=== PATIENT | female | born 1970 | race Caucasian/White ===

== ENCOUNTER 2018-10-23 11:17 | Observation (INO) ==
[2018-10-23] MEDS ORDERED: Ondansetron 4 MG/2 ML VIAL IVP ONE (11:29)
--- NOTE | 2018-10-23 11:36 | Emergency Department Note ---
Disposition Clinical Impression: TIA (transient ischemic attack) Disposition: Admitted As Inpatient Condition: Fair Referrals: NONE,PCP [Primary Care Provider] - Forms: ED Satisfaction Letter Time of Disposition: 15:43 General Adult HPI - General Chief complaint: ED Dizziness Stated complaint: dizziness, congestion Time Seen by Provider: 10/23/18 11:28 Vital Signs Reviewed: Yes - History of Present Illness HPI Narrative: Patient is a 48-year-old female with a history of migraines presenting to the emergency department for 4 day history of nausea and dizziness. Patient states that her symptoms began 4 days ago when she was in [facility]. Patient states that when her symptoms began she also experienced right-sided arm p aresthesias, right-sided facial droop, slurring of her speech, and water dripping off the side of her mouth when she tried to drink. She said that the symptoms lasted for a few minutes and self resolved. She states that she visited emergency department department 30 minutes after the onset of her symptoms. She states that they were concerned for stroke but workup was negative, states that they performed a CT scan done on an MRI. She states that since then she has had ongoing dizziness, nausea, and gait imbalance. She states that it feels as though the room is spinning around her. She states that this occurs daily and appears to be getting worse since. She has a history of migraines managed by Topamax, but states that she has not had any headaches recently. She denies any current unilateral changes in sensation or weakness. Patient does admit to recent illness, saying that she has been battling sinus infections since early September. Denies any other neurological complaints, no fevers but does admit to subjective chills. Patient denies any history of hypertension, hyperlipidemia, or diabetes. Pain Scale: 0 - Related Data Allergies Allergy/AdvReac Type Severity Reaction Status Date / Time Penicillins Allergy See Verified 10/23/18 11:22 Comments Constitutional: Reports: chills. Denies: fever Eyes: Denies: vision change ENT ED: Denies: hearing loss Cardiovascular: Reports: chest pain Respiratory: Denies: dyspnea Gastrointestinal: Denies: abdominal pain, nausea, vomiting Genitourinary: Denies: dysuria Musculoskeletal: Denies: back pain Integumentary: Denies: rash Neurological: Denies: headache Physical Exam - General Limitations: no limitations General appearance: other (Patient is alert and oriented, but slow to answer questions.) - Head Head exam: atraumatic, normocephalic - Eye Eye exam: Present: normal appearance, PERRL, EOMI - ENT ENT exam: normal exam - Neck Neck exam: Present: normal inspection, trachea midline - Chest Chest inspection: Present: normal inspection, symmetric chest wall rise - Respiratory Respiratory exam: Present: normal lung sounds bilaterally. Absent: wheezes - Cardiovascular Cardiovascular exam: Present: regular rate, normal rhythm, systolic murmur - Abdominal Exam Abdominal exam: Present: soft, Non-Tender. Absent: guarding, rigidity - Extremities Exam Extremities exam: Present: normal inspection - Neurological Exam Neurological exam: Present: alert, oriented X3 - Expanded Neurological Exam Patient oriented to: Present: person, place, time Speech: Present: fluid speech Cranial nerves: EOM function (II, III, IV, ): Normal, facial sensation (V): Normal, facial palsy (VII): Normal, spinal accessory function (XI): Normal, tongue deviation (XII): Normal Cerebellar function: finger to nose: Normal Motor strength - LUE: 5/5 Motor strength - RUE: 5/5 Motor strength - LLE: 5/5 Motor strength - RLE: 5/5 Sensory exam upper extremity: light touch: Normal Sensory exam lower extremity: light touch: Normal DTR: patellar (L): 2+, patellar (R): 2+ Coma Scale Eye Opening: Spontaneous Coma Scale Motor Response: Obeys Commands Coma Scale Verbal Response: Oriented Coma Scale Total: 15 - Psychiatric Psychiatric exam: Present: normal affect, normal mood - Skin Skin exam: Present: warm, dry, intact Course Course Narrative: 12:12 48 row female with four-day history of nausea and dizziness, stating as though the room is spinning around her. Symptoms occur daily and are progressively worsening. Symptoms initially presented with right-sided arm paresthesias, right-sided facial droop, and slurring of her words. Patient was worked up for strokelike symptoms at an emergency department in [place]. Workup was negative patient discharged home with diagnoses of vertigo. Will perform continued workup with labs including CC, CMP, troponin, urinalysis. Also obtain a chest x-ray and we will obtain a CT angiogram of the head and neck. Patient at this time is completely neurologically intact. 12:38 CBC, BMP, troponin, chest x-ray, and EKG all within normal limits. CTA head and neck pending. 14:40 CTA head and neck unremarkable. patient to be admitted to the hospital for neurological symptoms and TIA workup. Vital Signs Temperature 97.4 F L 10/23/18 11:21 Pulse Rate 71 10/23/18 11:21 Respiratory Rate 18 10/23/18 11:21 Blood Pressure 150/101 10/23/18 11:21 O2 Sat by Pulse Oximetry 95 10/23/18 11:21 Temperature 97.4 F L 10/23/18 11:46 Pulse Rate 66 10/23/18 14:27 Respiratory Rate 16 10/23/18 14:27 Blood Pressure 116/75 10/23/18 14:27 O2 Sat by Pulse Oximetry 99 10/23/18 14:27 Oxygen Delivery Oxygen Delivery Room Air Medical Decision Making - MDM Narrative Medical decision making narrative: 48-year-old female history of migraines presenting to the emergency department for a history of nausea and dizziness. Patient states her symptoms began 4 days ago were also associated with right-sided arm paresthesias, right-sided facial droop, slurred speech, and she drank water she noted water dripping off the side of her mouth. She was worked up at an emergency [facility] for possible stroke in [place] but CT scan was normal. She did not receive an MRI was not admitted at that time. Since that event patient states that she is continuously dizzy and nauseous. While in the emergency department patient remained hemodynamically stable, CT a head and neck were obtained and were normal. Lab work was grossly normal. Concern for TIA, patient be admitted to the hospital for further TIA workup. Head CTA 10/23/18 11:57 IMPRESSION: 1. No acute intracranial abnormality. 2. Acute on chronic right maxillary sinusitis. 3. Unremarkable CTA of the neck. 4. Unremarkable CTA of the head. D/ / 10/23/2018 14:11:40 Vickie Perez MD / patricio Interpreting Provider: Vickie Perez MD Neck CTA 10/23/18 11:58 IMPRESSION: 1. No acute intracranial abnormality. 2. Acute on chronic right maxillary sinusitis. 3. Unremarkable CTA of the neck. 4. Unremarkable CTA of the head. D/ / 10/23/2018 14:11:40 Vickie Perez MD / patricio Interpreting Provider: Vickie Perez MD Chest X-Ray 10/23/18 12:14 IMPRESSION: No evidence of acute cardiopulmonary disease. D/ / Manfred Donaldson MD / Manfred Donaldson MD Interpreting Provider: Manfred Donaldson MD - Lab Data Lab results reviewed: Yes I reviewed the patient's lab results. Result diagrams: 10/23/18 11:44 10/23/18 11:44 Lab Results 10/23/18 10/23/18 10/23/18 Range/Units 11:44 11:44 12:09 WBC 5.2 (4.3-11.1) K/mcL RBC 4.59 (3.82-4.97) M/mcL Hgb 13.4 (11.5-15.4) g/dL Hct 40.0 (35.3-44.9) % MCV 87.1 (83.0-100.0) fL MCH 29.2 (28.0-33.3) pg MCHC 33.5 (31.6-35.5) g/dL RDW 13.5 (11.5-14.5) % Plt Count 202 (140-400) K/mcL MPV 10.0 (9.4-12.4) fL Immature Gran % 0.6 (0-4) % Seg Neutrophils % 51.2 % Lymphocytes % 30.3 % Monocytes % 7.3 % Eosinophils % 9.8 % Basophils % 0.8 % Neutrophils # 2.7 (1.6-8.9) K/mcL Lymphocytes # 1.6 (0.6-4.6) K/mcL Monocytes # 0.4 (0.0-1.3) K/mcL Eosinophils # 0.5 (0.0-0.6) K/mcL Basophils # 0.0 (0.0-0.2) K/mcL Sodium 139 (136-145) mEq/L Potassium 3.9 (3.5-5.1) mEq/L Chloride 107 (98-107) mEq/L Carbon Dioxide 24 (23-29) mEq/L BUN 13 (6-20) mg/dL Creatinine 0.79 (0.60-1.20) mg/dL Est GFR ( Amer) > 60 (> 60) Est GFR (Non-Af Amer) > 60 (> 60) BUN/Creatinine Ratio 16 (6-26) Glucose 134 H (70-105) mg/dL POC Glucose 117 H (70-99) mg/dL Calculated Osmolality 290 (280-300) Calcium 8.8 (8.6-10.3) mg/dL Total Bilirubin 0.6 (0.3-1.0) mg/dL AST 16 (13-39) Units/L ALT 19 (7-52) Units/L Alkaline Phosphatase 56 (34-104) Units/L Troponin I < 0.03 (< 0.04) ng/mL Serum Total Protein 6.8 (6.4-8.9) g/dL Albumin 4.1 (3.5-5.7) g/dL Globulin 2.7 (2.4-3.5) g/dL Albumin/Globulin Ratio 1.5 (1.1-2.2) Urine Color (Yellow) Urine Clarity (Clear) Urine pH (5.0-8.0) pH Units Ur Specific [place] (1.010-1.025) Urine Protein (Neg-Trace) mg/dL Urine Glucose (UA) (Normal) mg/dL Urine Ketones (Negative) mg/dL Urine Blood (Negative) Urine Nitrite (Negative) Urine Bilirubin (Negative) Urine Urobilinogen (Normal) mg/dL Ur Leukocyte Esterase (Negative) Ur Culture Indicated? (NO) 10/23/18 Range/Units 13:21 WBC (4.3-11.1) K/mcL RBC (3.82-4.97) M/mcL Hgb (11.5-15.4) g/dL Hct (35.3-44.9) % MCV (83.0-100.0) fL MCH (28.0-33.3) pg MCHC (31.6-35.5) g/dL RDW (11.5-14.5) % Plt Count (140-400) K/mcL MPV (9.4-12.4) fL Immature Gran % (0-4) % Seg Neutrophils % % Lymphocytes % % Monocytes % % Eosinophils % % Basophils % % Neutrophils # (1.6-8.9) K/mcL Lymphocytes # (0.6-4.6) K/mcL Monocytes # (0.0-1.3) K/mcL Eosinophils # (0.0-0.6) K/mcL Basophils # (0.0-0.2) K/mcL Sodium (136-145) mEq/L Potassium (3.5-5.1) mEq/L Chloride (98-107) mEq/L Carbon Dioxide (23-29) mEq/L BUN (6-20) mg/dL Creatinine (0.60-1.20) mg/dL Est GFR ( Amer) (> 60) Est GFR (Non-Af Amer) (> 60) BUN/Creatinine Ratio (6-26) Glucose (70-105) mg/dL POC Glucose (70-99) mg/dL Calculated Osmolality (280-300) Calcium (8.6-10.3) mg/dL Total Bilirubin (0.3-1.0) mg/dL AST (13-39) Units/L ALT (7-52) Units/L Alkaline Phosphatase (34-104) Units/L Troponin I (< 0.04) ng/mL Serum Total Protein (6.4-8.9) g/dL Albumin (3.5-5.7) g/dL Globulin (2.4-3.5) g/dL Albumin/Globulin Ratio (1.1-2.2) Urine Color Yellow (Yellow) Urine Clarity Clear (Clear) Urine pH 7.5 (5.0-8.0) pH Units Ur Specific [place] 1.016 (1.010-1.025) Urine Protein Negative (Neg-Trace) mg/dL Urine Glucose (UA) Normal (Normal) mg/dL Urine Ketones Negative (Negative) mg/dL Urine Blood Negative (Negative) Urine Nitrite Negative (Negative) Urine Bilirubin Negative (Negative) Urine Urobilinogen 2.0 H (Normal) mg/dL Ur Leukocyte Esterase Negative (Negative) Ur Culture Indicated? NO (NO) - Radiology Data Radiology results reviewed: Yes I reviewed the patient's radiology results. - EKG Data EKG #1 EKG attestation: Yes I reviewed and interpreted this EKG. EKG results narrative: EKG shows sinus rhythm with a heart rate of 73. Left axis deviation with late R-wave progression present. Normal CT interval, normal QT interval. T-wave inversions in lead V2 and V3. No old EKG to compare. No obvious ST elevations or depressions.
[2018-10-23 11:56] LABS: Basophils % 0.8 %; Eosinophils # 0.5 K/mcL (0.0-0.6); Eosinophils % 9.8 %; Hemoglobin 13.4 g/dL (11.5-15.4); Immature Granulocytes % 0.6 % (0-4); Lymphocytes # 1.6 K/mcL (0.6-4.6); Lymphocytes % 30.3 %; Mean Corpuscular HGB Conc 33.5 g/dL (31.6-35.5); Mean Corpuscular Hemoglobin 29.2 pg (28.0-33.3); Mean Corpuscular Volume 87.1 fL (83.0-100.0); Monocytes # 0.4 K/mcL (0.0-1.3); Monocytes % 7.3 %; Neutrophils # 2.7 K/mcL (1.6-8.9); Platelet Count 202 K/mcL (140-400); Red Blood Count 4.59 M/mcL (3.82-4.97); Red Cell Distribution Width 13.5 % (11.5-14.5); Segmented Neutrophils % 51.2 %
[2018-10-23] MEDS ORDERED: Isovue-370 500 ML INFUS..BTL IV ONE (11:57)
[2018-10-23 12:18] LABS: Alanine Aminotransferase 19 Units/L (7-52); Albumin 4.1 g/dL (3.5-5.7); Albumin/Globulin Ratio 1.5 (1.1-2.2); Alkaline Phosphatase 56 Units/L (34-104); Aspartate Amino Transferase 16 Units/L (13-39); BUN/Creatinine Ratio 16 (6-26); Bilirubin,Total 0.6 mg/dL (0.3-1.0); Blood Urea Nitrogen 13 mg/dL (6-20); Calcium 8.8 mg/dL (8.6-10.3); Carbon Dioxide 24 mEq/L (23-29); Chloride 107 mEq/L (98-107); Globulin 2.7 g/dL (2.4-3.5); Glucose 134 mg/dL (70-105); Osmolality,Calculated 290 (280-300); Potassium 3.9 mEq/L (3.5-5.1); Sodium 139 mEq/L (136-145); Total Protein 6.8 g/dL (6.4-8.9); Troponin I < 0.03 ng/mL (< 0.04); eGFR For Non-African Americans > 60 (> 60)
[2018-10-23 13:35] LABS: Bilirubin,Urine Negative (Negative); Blood,Urine Negative (Negative); Clarity,Urine Clear (Clear); Color,Urine Yellow (Yellow); Glucose,Urine (UA) Normal (Normal); Ketones,Urine Negative (Negative); Leukocyte Esterase,Urine Negative (Negative); Nitrite,Urine Negative (Negative); PH,Urine 7.5 pH Units (5.0-8.0); Protein,Urine Negative (Neg-Trace); Specific Gravity,Urine 1.016 (1.010-1.025)
[2018-10-23] MEDS ORDERED: Aspirin 325 MG TABLET PO ONE (14:21)
--- NOTE | 2018-10-23 14:28 | Emergency Department Note ---
Disposition Clinical Impression: TIA (transient ischemic attack) Disposition: Admitted As Inpatient Condition: Good Referrals: NONE,PCP [Primary Care Provider] - Forms: ED Satisfaction Letter General Adult HPI - General Chief complaint: ED Dizziness Stated complaint: dizziness, congestion Time Seen by Provider: 10/23/18 11:28 Source: patient Limitations: no limitations - History of Present Illness Pain Scale: 0 - Related Data Allergies Allergy/AdvReac Type Severity Reaction Status Date / Time Penicillins Allergy See Verified 10/23/18 11:22 Comments Constitutional: Reports: chills. Denies: fever Eyes: Denies: vision change ENT ED: Denies: hearing loss Cardiovascular: Reports: chest pain Respiratory: Denies: dyspnea Gastrointestinal: Denies: abdominal pain, nausea, vomiting Genitourinary: Denies: dysuria Musculoskeletal: Denies: back pain Integumentary: Denies: rash Neurological: Denies: headache Past Medical History - Past Medical History Medical history: Reports: migraine Psychiatric history: Reports: no psych history - Social History Smoking Status: Never smoker Alcohol use: Reports: none Drug use: Reports: none Physical Exam - General Limitations: no limitations General appearance: other (Patient is alert and oriented, but slow to answer questions.) Course - Consultations Consultation #1: discusseed case with Dr. Guzmán and he accpts patinet ot his service Time: 14:40 Vital Signs Temperature 97.4 F L 10/23/18 11:21 Pulse Rate 71 10/23/18 11:21 Respiratory Rate 18 10/23/18 11:21 Blood Pressure 150/101 10/23/18 11:21 O2 Sat by Pulse Oximetry 95 10/23/18 11:21 Temperature 97.4 F L 10/23/18 11:46 Pulse Rate 66 10/23/18 14:27 Respiratory Rate 16 10/23/18 14:27 Blood Pressure 116/75 10/23/18 14:27 O2 Sat by Pulse Oximetry 99 10/23/18 14:27 Oxygen Delivery Oxygen Delivery Room Air Medical Decision Making - Lab Data Result diagrams: 10/23/18 11:44 10/23/18 11:44 Lab Results 10/23/18 10/23/18 10/23/18 Range/Units 11:44 11:44 12:09 WBC 5.2 (4.3-11.1) K/mcL RBC 4.59 (3.82-4.97) M/mcL Hgb 13.4 (11.5-15.4) g/dL Hct 40.0 (35.3-44.9) % MCV 87.1 (83.0-100.0) fL MCH 29.2 (28.0-33.3) pg MCHC 33.5 (31.6-35.5) g/dL RDW 13.5 (11.5-14.5) % Plt Count 202 (140-400) K/mcL MPV 10.0 (9.4-12.4) fL Immature Gran % 0.6 (0-4) % Seg Neutrophils % 51.2 % Lymphocytes % 30.3 % Monocytes % 7.3 % Eosinophils % 9.8 % Basophils % 0.8 % Neutrophils # 2.7 (1.6-8.9) K/mcL Lymphocytes # 1.6 (0.6-4.6) K/mcL Monocytes # 0.4 (0.0-1.3) K/mcL Eosinophils # 0.5 (0.0-0.6) K/mcL Basophils # 0.0 (0.0-0.2) K/mcL Sodium 139 (136-145) mEq/L Potassium 3.9 (3.5-5.1) mEq/L Chloride 107 (98-107) mEq/L Carbon Dioxide 24 (23-29) mEq/L BUN 13 (6-20) mg/dL Creatinine 0.79 (0.60-1.20) mg/dL Est GFR ( Amer) > 60 (> 60) Est GFR (Non-Af Amer) > 60 (> 60) BUN/Creatinine Ratio 16 (6-26) Glucose 134 H (70-105) mg/dL POC Glucose 117 H (70-99) mg/dL Calculated Osmolality 290 (280-300) Calcium 8.8 (8.6-10.3) mg/dL Total Bilirubin 0.6 (0.3-1.0) mg/dL AST 16 (13-39) Units/L ALT 19 (7-52) Units/L Alkaline Phosphatase 56 (34-104) Units/L Troponin I < 0.03 (< 0.04) ng/mL Serum Total Protein 6.8 (6.4-8.9) g/dL Albumin 4.1 (3.5-5.7) g/dL Globulin 2.7 (2.4-3.5) g/dL Albumin/Globulin Ratio 1.5 (1.1-2.2) Urine Color (Yellow) Urine Clarity (Clear) Urine pH (5.0-8.0) pH Units Ur Specific [place] (1.010-1.025) Urine Protein (Neg-Trace) mg/dL Urine Glucose (UA) (Normal) mg/dL Urine Ketones (Negative) mg/dL Urine Blood (Negative) Urine Nitrite (Negative) Urine Bilirubin (Negative) Urine Urobilinogen (Normal) mg/dL Ur Leukocyte Esterase (Negative) Ur Culture Indicated? (NO) 10/23/18 Range/Units 13:21 WBC (4.3-11.1) K/mcL RBC (3.82-4.97) M/mcL Hgb (11.5-15.4) g/dL Hct (35.3-44.9) % MCV (83.0-100.0) fL MCH (28.0-33.3) pg MCHC (31.6-35.5) g/dL RDW (11.5-14.5) % Plt Count (140-400) K/mcL MPV (9.4-12.4) fL Immature Gran % (0-4) % Seg Neutrophils % % Lymphocytes % % Monocytes % % Eosinophils % % Basophils % % Neutrophils # (1.6-8.9) K/mcL Lymphocytes # (0.6-4.6) K/mcL Monocytes # (0.0-1.3) K/mcL Eosinophils # (0.0-0.6) K/mcL Basophils # (0.0-0.2) K/mcL Sodium (136-145) mEq/L Potassium (3.5-5.1) mEq/L Chloride (98-107) mEq/L Carbon Dioxide (23-29) mEq/L BUN (6-20) mg/dL Creatinine (0.60-1.20) mg/dL Est GFR ( Amer) (> 60) Est GFR (Non-Af Amer) (> 60) BUN/Creatinine Ratio (6-26) Glucose (70-105) mg/dL POC Glucose (70-99) mg/dL Calculated Osmolality (280-300) Calcium (8.6-10.3) mg/dL Total Bilirubin (0.3-1.0) mg/dL AST (13-39) Units/L ALT (7-52) Units/L Alkaline Phosphatase (34-104) Units/L Troponin I (< 0.04) ng/mL Serum Total Protein (6.4-8.9) g/dL Albumin (3.5-5.7) g/dL Globulin (2.4-3.5) g/dL Albumin/Globulin Ratio (1.1-2.2) Urine Color Yellow (Yellow) Urine Clarity Clear (Clear) Urine pH 7.5 (5.0-8.0) pH Units Ur Specific [place] 1.016 (1.010-1.025) Urine Protein Negative (Neg-Trace) mg/dL Urine Glucose (UA) Normal (Normal) mg/dL Urine Ketones Negative (Negative) mg/dL Urine Blood Negative (Negative) Urine Nitrite Negative (Negative) Urine Bilirubin Negative (Negative) Urine Urobilinogen 2.0 H (Normal) mg/dL Ur Leukocyte Esterase Negative (Negative) Ur Culture Indicated? NO (NO) Attestation Statement - Attestation Attestation: I examined this patient and my medical decision-making was reviewed with the Resident Physician. I agree with the documented findings, disposition and treatment plan as described except to the extent set forth below. 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 She states [facility] and was told she has veritgo. CTA head and neck are otherwise neg ative. I will offer kaylene admission to day for TIA rule out CVA workup. After discussion with kaylene she is willing to be admittd to the hosital for TIA workup.
[2018-10-23] MEDS ORDERED: Naloxone 0.4 MG/ML INJ IVP PRN (15:35)
[2018-10-23 18:14] LABS: Estimated Average Glucose 114 mg/dl; Hemoglobin A1C 5.6 %
--- NOTE | 2018-10-23 20:34 | Internal Med History&Physical ---
Date of Encounter: 10/23/18 Time of Encounter: 17:00 Internal Medicine - H&P: HPI Chief complaint: Vertigo Admitted From: Home Plans for Post Hospital Care: Hospice - Home History of present illness: The patient is a 48-year-old woman. She has underlying migraine headaches. She takes phentermine for treatment of obesity. It was 3 days ago, when she visited [place] for her work-related training. She suddenly developed a feeling of being flushed; with some sweating and tingling in the right arm. It was associated with a feeling of surroundings moving around her. It was also associated with some difficulty in balancing her gait. 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 Then, she was evaluated in an emergency department. They did not find any particular abnormalities (this is what she told me). They gave her meclizine. After a short stay, she left the emergency room basically without any symptoms. She was doing fine for the next 2 days. She started having vertigo (as described above) again, today morning. This time giving her 12.5 mg of meclizine did not help. I saw her shortly after the admission to the hospital floor. She continues to have mild vertigo. Not associated with nausea or vomiting. Not associated with any headache. She was standing for me for a short period of time. Not having any assistance. She tells me, that she has had some aching, in her left ear for about 1 day. She has been fighting "sinus infection side" for the last few weeks. It is a feeling of stuffy nose with some pressure in the area of maxillary sinuses. She has not had any migraine headaches recently. She was started on Topamax about 2 months ago; did not change her low-dose recently. She took the last tablet of phentermine on (3 days ago). PAST MEDICAL HX: Migraine headaches. She has been taking phentermine for treatment of obesity. PAST FAMILY HX: See below.. PAST SOCIAL HX: See below.. REVIEW OF SYSTEMS: All 14 organ systems were reviewed by me with the patient. Positive and pertinent negative findings are listed above. The rest of organ systems is negative. PHYSICAL EXAM: Skin: Free of rash and discoloration. Eyes: Sclera is white. There is no discharge from eyes. ENMT: Oral/pharyngeal mucosa is normal in appearance. There is no discharge from nose or ears. Respiratory: Normal breath sounds with no crackles and wheezes bilaterally. CV: Heart is regular with no gallop or murmur. GI: Abdomen is flat and soft with no palpable mass or visceromegaly. : There is no tenderness in patient's flanks bilaterally. Neuro exam: He has good strength in upper and lower extremities. He has normal eye movements. Psychiatric: He has normal affect. His thought process is appropriate to the situation. ADDITIONAL DATA: The patient had a CTA of head and CTA of the neck done in our emergency room. She does have an acute on chronic right maxillary sinusitis. Otherwise, we did not find any other significant findings. Chest x-ray shows normal findings. CBC is normal. BMP shows a random glucose of 117; the rest of the panel is normal. UA shows normal findings. A/P: Vertigo. It could be presentation of acute labyrinthitis. I will keep her on meclizine at 25 mg by mouth 3 times a day. I am going to reevaluate her t omorrow morning. Then, I will decide about possible MRI of brain and/or neurology consult. Migraine headaches. She has not had any for at least several days. Possible side effects from Topamax and/or phentermine. I will keep this medication is on hold for the next couple days. Obesity with a BMI of 39.4. It will be treated with diet and exercise. Past Med Surg Social Fam HX - Past Medical History Medical history: fibromyalgia, migraine Psychiatric history: no psych history - Past Surgical History Additional surgical history: hysterectomy - Social History Smoking Status: Never smoker Smokeless Tobacco Status: No Alcohol use: none Drug use: none - Family History Father Living Status: Age at : 65 Cause of : [place] Hx Family Cardiac Disorders: Yes Hx Family Respiratory Disorders: No Hx Family Cancer: No Hx Family GI Disorders: No Hx Family Genitourinary Disorders: No Hx Family Endocrine Disorder: No Hx Family Musculoskeletal Disorders: No Hx Family Neuromuscular Disorders: No Hx Family Neurologic Disorders: No Hx Family HEENT Disorders: No Hx Family Autoimmune Disorders: No Hx Family Reproductive Disorders: No Hx Family Psychosocial Disorders: No Hx Family Medical Disorders: No Internal Medicine - H&P: Meds Ergocalciferol (VITAMIN D2) [Vitamin D2] 50,000 unit PO TH 10/23/18 [History] Ketorolac [Toradol] 10 mg PO DAILY PRN 10/23/18 [History] Phentermine HCl [Adipex-P] 37.5 mg PO DAILY 10/23/18 [History] Topiramate [Topamax] 25 mg PO DAILY 10/23/18 [History] Allergy/AdvReac Type Severity Reaction Status Date / Time Penicillins Allergy See Verified 10/23/18 11:22 Comments - Constitutional Vitals: Temp Pulse Resp BP Pulse Ox 97.5 F L 68 18 125/88 99 10/23/18 16:39 10/23/18 16:39 10/23/18 16:39 10/23/18 16:39 10/23/18 16:39 General appearance: Present: A&O X 3, answers questions appropriately Exam: xx Internal Med - H&P Results - Labs CBC & Chem 7: 10/23/18 11:44 10/23/18 11:44 Labs: Short CBC 10/23/18 Range/Units 11:44 WBC 5.2 (4.3-11.1) K/mcL Hgb 13.4 (11.5-15.4) g/dL Hct 40.0 (35.3-44.9) % Plt Count 202 (140-400) K/mcL Neutrophils # 2.7 (1.6-8.9) K/mcL BMP 10/23/18 11:44 Sodium 139 Potassium 3.9 Chloride 107 Carbon Dioxide 24 BUN 13 Creatinine 0.79 Glucose 134 H Calcium 8.8 Cardiac Enzymes 10/23/18 Range/Units 11:44 Troponin I < 0.03 (< 0.04) ng/mL Liver Function 10/23/18 Range/Units 11:44 Total Bilirubin 0.6 (0.3-1.0) mg/dL AST 16 (13-39) Units/L ALT 19 (7-52) Units/L Alkaline Phosphatase 56 (34-104) Units/L Albumin 4.1 (3.5-5.7) g/dL Urine 10/23/18 Range/Units 13:21 Urine Color Yellow (Yellow) Urine Clarity Clear (Clear) Urine pH 7.5 (5.0-8.0) pH Units Ur Specific [place] 1.016 (1.010-1.025) Urine Protein Negative (Neg-Trace) mg/dL Urine Glucose (UA) Normal (Normal) mg/dL - Impressions ITS Impressions Head CTA 10/23/18 11:57 IMPRESSION: 1. No acute intracranial abnormality. 2. Acute on chronic right maxillary sinusitis. 3. Unremarkable CTA of the neck. 4. Unremarkable CTA of the head. D/ / 10/23/2018 14:11:40 Vickie Perez MD / patricio Interpreting Provider: Vickie Perez MD Neck CTA 10/23/18 11:58 IMPRESSION: 1. No acute intracranial abnormality. 2. Acute on chronic right maxillary sinusitis. 3. Unremarkable CTA of the neck. 4. Unremarkable CTA of the head. D/ / 10/23/2018 14:11:40 Vickie Perez MD / patricio Interpreting Provider: Vickie Perez MD Chest X-Ray 10/23/18 12:14 IMPRESSION: No evidence of acute cardiopulmonary disease. D/ / Manfred Donaldson MD / Manfred Donaldson MD Interpreting Provider: Manfred Donaldson MD - Assessment and plan (1) Vertigo Current Visit: Yes Status: Acute (2) Migraine headache Current Visit: Yes Status: Acute Qualifiers: Migraine type: unspecified Intractability: not intractable Qualified Code(s): G43.909 - Migraine, unspecified, not intractable, without status migrainosus (3) Medication side effect Current Visit: Yes Status: Acute (4) Obesity (BMI 35.0-39.9 without comorbidity) Current Visit: Yes Status: Acute - Time Spent With Patient Total time spent is greater than 50% in coordination of care (as documented) at patient's floor/unit and/or counseling patient: 25 - 35 minutes - VTE Reasons for not Prescribing Prophylaxis: Treatment not Indicated - Low risk for VTE Deep Vein Thrombosis/Pulmonary Embolism Present on Admission: No
--- NOTE | 2018-10-24 10:28 | Neurology - Consult Note ---
<Alex Davidson - Last Filed: 10/24/18 12:41> Date of Encounter: 10/24/18 Time of Encounter: 10:28 Assessment and Plan (1) Vertigo Current Visit: Yes Status: Acute Patient with a history of migraines who presented with recurrent vertigo upon a wakening. CT brain at that time was reportedly negative for acute intracranial abnormality 4 days ago at an outside facility. CTA head revealed acute on chronic right maxillary sinusitis with no acute intracranial abnormality. CTA neck was unremarkable. Patient reports left ear ache for the past 1 day which she attributed to maxillary sinusitis for the past few weeks. Symptoms have somewhat improved with Meclizine since arrival. Continue Meclizine. MRI brain pending. (2) Migraine headache Current Visit: Yes Status: Acute Patient started Topamax 2 months ago for migraines. MRI brain pending Qualifiers: Migraine type: unspecified Status migrainosus presence: without status migrainosus Intractability: not intractable Qualified Code(s): G43.909 - Migraine, unspecified, not intractable, without status migrainosus (3) Obesity (BMI 35.0-39.9 without comorbidity) Current Visit: Yes Status: Chronic Phentermine held. Last Phentermine use was 4 days ago. 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 Patient reports onset of symptoms while she was unhooking her tractor trailer in [place] 4 days ago. She states that it felt as though everything was spinning around her like she was drunk. She had associated slight occipital headache, unsteady gait, diaphoresis, tingling in her right arm, and flushing sensation. CT brain at that time was reportedly negative for acute intracranial abnormality. Symptoms resolved with Meclizine in the ED before she flew back home. She returned to [place] 2 days ago and reports recurrent symptoms yesterday morning upon awakening. She reports some difficulty swallowing. Patient denies associated headache, nausea, vomiting, or recent trauma. Of note, patient reports left ear ache for the past 1 day which she attributed to maxillary sinusitis for the past few weeks. Symptoms have somewhat improved with Meclizine since arrival. She started Topamax 2 months ago for migraines and takes Phentermine intermittently of weight loss. Last Phentermine use was 4 days ago. Home medications have been held and neurology was consulted for further recommendations. Past Med Surg Social Fam HX - Past Medical History Medical history: fibromyalgia, migraine Psychiatric history: no psych history - Past Surgical History Additional surgical history: hysterectomy - Social History Smoking Status: Never smoker Smokeless Tobacco Status: No Alcohol use: none Drug use: none - Family History Father Living Status: Age at : 65 Cause of : [place] Hx Family Cardiac Disorders: Yes Hx Family Respiratory Disorders: No Hx Family Cancer: No Hx Family GI Disorders: No Hx Family Genitourinary Disorders: No Hx Family Endocrine Disorder: No Hx Family Musculoskeletal Disorders: No Hx Family Neuromuscular Disorders: No Hx Family Neurologic Disorders: No Hx Family HEENT Disorders: No Hx Family Autoimmune Disorders: No Hx Family Reproductive Disorders: No Hx Family Psychosocial Disorders: No Hx Family Medical Disorders: No Medications and Allergies Ergocalciferol (VITAMIN D2) [Vitamin D2] 50,000 unit PO TH 10/23/18 [History] Phentermine HCl [Adipex-P] 37.5 mg PO DAILY 10/23/18 [History] RX: Ketorolac [Toradol] 10 mg PO DAILY PRN 10/23/18 [History] Topiramate [Topamax] 25 mg PO DAILY 10/23/18 [History] Allergy/AdvReac Type Severity Reaction Status Date / Time Penicillins Allergy See Verified 10/23/18 11:22 Comments All Systems: The remainder of the systems were reviewed and are negative - Constitutional Constitutional ROS IM: headache(s), no chills, no fever(s) - Eyes Eyes: bilateral: blurred vision (chronic, uses glasses) - Nose, Mouth, Throat Nose, mouth and throat: disequilibrium, dizziness, dysphagia, headache(s) - Cardiovascular Cardiovascular ROS IM: no chest pain, no palpitations - Respiratory Respiratory IM: no cough, no dyspnea - Gastrointestinal Gastrointestinal: dysphagia, nausea, no vomiting - Genitourinary Genitourinary ROS: no urinary frequency, no urinary urgency - Musculoskeletal Musculoskeletal ROS IM: neck pain, numbness, no back pain, no muscle weakness - Integumentary Integumentary IM: no new lesions, no rash - Neurological Neurological ROS: disequilibrium, dizziness, headache(s), numbness, no focal weakness, no frequent falls, no lack of coordination, no paresthesias, no weakness - Psychiatric Psychiatric general PM: no anxiety, no depression Physical Examination - Vital Signs Vital Signs: Initial Vital Signs Temp Pulse Resp BP Pulse Ox 97.4 F L 71 18 150/101 95 10/23/18 11:21 1218 11:21 10/23/18 11:21 10/23/18 11:21 10/23/18 11:21 - Constitutional General appearance: comfortable (obese), other (large amount of cerumen obstructing left TM, normal TM on right) - Neurologic Sensorimotor examination: intact, pronator drift Detailed motor examination: grossly full strength in all extremities, full strength in all major muscle groups Motor examination - right side: 5/5: deltoids, biceps, triceps, wrist flexion, wrist extension, mud logger, hip flexors, tibialis Anterior, quadriceps, toe extension (EHL), plantarflexion Motor examination - left side: 5/5: deltoids, biceps, triceps, wrist flexion, wrist extension, hip flexors, mud logger, quadriceps, tibialis Anterior, toe extension (EHL), plantarflexion Detailed sensory examination: intact, light touch Reflex and gait examination: normal gait Reflexes: Biceps: 2+, Triceps: 2+, Brachioradialis: 2+, Patella: 2+, Achilles: 2+ Mental Status Examination: awake, alert, oriented to person, oriented to place, oriented to time, follows commands appropriately, answers questions appr opriately, no agnosia, no aphasia, no aproxia Cranial nerve examination: PERRL, EOMI, visual brennan intact, sensory to face intact, no facial asymmetry is present, no dysarthria, hearing is intact symmetrically, soft palate elevates bilaterally upon phonation, gag reflex int act, flexes SCM and trapezius muscles symmetrically with full power, tongue protrudes midline, no atrophy or facial fasiculations present Cerebellar examination: no dysmetria, performs finger to nose and heel to tariq symmetrically without ataxia, no gait ataxia, no truncal ataxia, no difficulty with rapid alternating movements Results - Laboratory Findings CBC and BMP: 10/23/18 11:44 10/23/18 11:44 Abnormal lab findings: Abnormal lab results Glucose 134 mg/dL (70-105) H 10/23/18 11:44 POC Glucose 117 mg/dL (70-99) H 10/23/18 12:09 Urine Urobilinogen 2.0 mg/dL (Normal) H 10/23/18 13:21 - Diagnostic Findings Additional findings: ITS Impressions Head CTA 10/23/18 11:57 IMPRESSION: 1. No acute intracranial abnormality. 2. Acute on chronic right maxillary sinusitis. 3. Unremarkable CTA of the neck. 4. Unremarkable CTA of the head. D/ / 10/23/2018 14:11:40 Vickie Perez MD / patricio Interpreting Provider: Vickie Perez MD Neck CTA 10/23/18 11:58 IMPRESSION: 1. No acute intracranial abnormality. 2. Acute on chronic right maxillary sinusitis. 3. Unremarkable CTA of the neck. 4. Unremarkable CTA of the head. D/ / 10/23/2018 14:11:40 Vickie Perez MD / patricio Interpreting Provider: Vickie Perez MD Chest X-Ray 10/23/18 12:14 IMPRESSION: No evidence of acute cardiopulmonary disease. D/ / Manfred Donaldson MD / Manfred Donaldson MD Interpreting Provider: Manfred Donaldson MD Consult Discharge Plan - Plan Referrals: NONE,PCP [Primary Care Provider] - (Patient lives in [place]. and will call her own follow up once she returns home) <Aman Becerra - Last Filed: 10/24/18 18:49> Date of Encounter: 10/24/18 Time of Encounter: 18:44 Assessment and Plan (1) Vertigo Current Visit: Yes Status: Acute I am highly suspicious of benign postural positional vertigo. Her symptoms were worse with movement and repositioning, and improved with inactivity. She also had some left ear pain with a cerumen impaction. However she did have some complaints of paresthesias of the right upper extremity therefore we should rule out the possibility of brainstem infarct. CTA scan of the head and neck were both negative. Her neurologic examination is normal MRI scan of the brain is pending. Further recommendations will be made pending the MRI report. If it is negative then I would recommend having her seen by ENT for cerumen extraction. Otherwise I will reevaluate her at your request. History of Present Illness HPI: The chart was reviewed independently, the patient was seen and examined along with the resident neurology resident. I agree with his assessment as stated above. Patient did mention however that the symptoms were worse with movement and will less intense with inactivity. She did have some left ear pain, as well as cerumen impaction on the left. All Systems: The remainder of the systems were reviewed and are negative Review of Systems: The balance of the systems review is negative. Physical Examination - Vital Signs Vital Signs: Initial Vital Signs Temp Pulse Resp BP Pulse Ox 97.4 F L 71 18 150/101 95 10/23/18 11:21 10/23/18 11:21 10/23/18 11:21 10/23/18 11:21 10/23/18 11:21 Results - Laboratory Findings CBC and BMP: 10/23/18 11:44 10/23/18 11:44 Abnormal lab findings: Abnormal lab results Glucose 134 mg/dL (70-105) H 10/23/18 11:44 POC Glucose 117 mg/dL (70-99) H 10/23/18 12:09 Urine Urobilinogen 2.0 mg/dL (Normal) H 10/23/18 13:21
[2018-10-24] MEDS: Ibuprofen 600 MG TABLET PO PRN (15:01)
[2018-10-24] MEDS: Loratadine 10 MG TABLET PO SCH (16:32)
[2018-10-24] MEDS: Fluticasone Propionate Nasal 50 MCG/SPRAY BOTTLE NS SCH (17:31)
--- NOTE | 2018-10-25 00:18 | Internal Med Progress Note ---
Hospitalist Progress Note - Encounter Date of Encounter: 10/24/18 Time of Encounter: 19:00 - Subjective Interval History: SUBJECTIVE: The patient continues to have vertigo. It makes her walking difficult; needs assistance. Denies headache. Denies dizziness/lightheadedness. Denies chest pain and difficulty breathing. OBJECTIVE: Skin: Free of rash and discoloration. ENMT: Oral/pharyngeal mucosa is normal in appearance. Eyes: Sclera is white. There is no discharge from eyes. Respiratory: Normal breath sounds; no crackles or wheezes. CV: Heart is regular; no gallop or murmur. GI: Abdomen is soft and not tender. There is no palpable mass or visceromegaly. Neuro: There is no focal deficits. I cannot appreciate any nystagmus. ADDITIONAL DATA: I am ordering MRI of brain. ASSESSMENT AND PLAN: Vertigo. The patient did not response to treatment with meclizine. She may have some problem in posterior fossa. To obtain MRI of brain. The patient has normal CTA of head and brain. Migraine headache. She has not had any for quite some time. Possible side effects from medications. She was taking Topamax and phentermine. I will keep those medications on hold for the next few days. Obesity with a BMI of 39.4. To be addressed later in outpatient settings. - Exam Vitals: Temp Pulse Resp BP Pulse Ox 98.6 F 82 17 124/88 96 10/24/18 19:34 10/24/18 19:34 10/24/18 19:34 10/24/18 19:34 10/24/18 19:34 Exam: xx - Assessment and Plan (1) Vertigo Current Visit: Yes Status: Acute (2) Migraine headache Current Visit: Yes Status: Acute (3) Medication side effect Current Visit: Yes Status: Acute (4) Obesity (BMI 35.0-39.9 without comorbidity) Current Visit: Yes Status: Chronic - Time Spent with Patient Total time spent is greater than 50% in coordination of care (as documented) at patient's floor/unit and/or counseling patient: Internal Medicine: Result - Labs CBC & Chem 7: 10/23/18 11:44 10/23/18 11:44 - VTE Reasons for not Prescribing Prophylaxis: Treatment not Indicated - Low risk for VTE Deep Vein Thrombosis/Pulmonary Embolism Present on Admission: No Consult Discharge Plan - Plan Referrals: NONE,PCP [Primary Care Provider] - (Patient lives in [place]. and will call her own follow up once she returns home) ____ (2) Migraine headache Qualifiers: Migraine type: unspecified Status migrainosus presence: without status migrainosus Intractability: not intractable Qualified Code(s): G43.909 - Migraine, unspecified, not intractable, without status migrainosus
[2018-10-25] MEDS: Ibuprofen 600 MG TABLET PO PRN ×2 (04:31→22:28)
--- NOTE | 2018-10-25 06:29 | Neurology Progress Note ---
Addendum entered and electronically signed by Aman Becerra DO 10/25/18 16:07: Patient had a normal MRI scan of the brain. I would therefore concluded that her dizziness is secondary to BPPV. You may discharge her at your discretion. Addendum entered and electronically signed by Alex Davidson DO 10/25/18 10:35: This addendum serves as my signature to this progress note. Original Note: <Alex Davidson - Last Filed: 10/25/18 06:27> Date of Encounter: 10/25/18 Time of Encounter: 06:27 Assessment and Plan (1) Vertigo Current Visit: Yes Status: Acute Patient with a history of migraines who presented with recurrent vertigo upon awakening. CT brain at that time was reportedly negative for acute intracranial abnormality 4 days ago at an outside facility. CTA head revealed acute on chronic right maxillary sinusitis with no acute intracranial abnormality. CTA neck was unremarkable. Patient reports left ear ache for the past 1 day which she attributed to maxillary sinusitis for the past few weeks. Symptoms have somewhat improved with Meclizine since arrival. Continue Meclizine. MRI brain pending. (2) Migraine headache Current Visit: Yes Status: Chronic Patient started Topamax 2 months ago for migraines. MRI brain pending Qualifiers: Migraine type: unspecified Status migrainosus presence: without status migrainosus Intractability: not intractable Qualified Code(s): G43.909 - Mi graine, unspecified, not intractable, without status migrainosus (3) Right maxillary sinusitis, chronic Current Visit: Yes Status: Chronic CTA head revealed acute on chronic right maxillary sinusitis Management per primary team. (4) Obesity (BMI 35.0-39.9 without comorbidity) Current Visit: Yes Status: Chronic Phentermine held. Subjective Principal diagnosis: Vertigo Interval history: Patient seen and examined resting comfortably in bed. Patient remains on Meclizine and is still awaiting MRI brain. Objective - Constitutional Vitals: Temp Pulse Resp BP Pulse Ox 97.8 F 59 17 100/67 96 10/25/18 04:12 10/25/18 04:12 10/25/18 04:12 10/25/18 04:12 10/25/18 04:12 General appearance: Present: cooperative, A&O X 3, no acute distress, answers questions appropriately - Head Head exam: Present: atraumatic, normocephalic - Eye Eye exam: Present: PERRL, conjuntiva pink, sclera anicteric Pupils: Present: PERRL - Extremities Exam Extremities exam: Present: warm, radial pulses palpable and symmetrical. Absent: calf tenderness, cyanotic, pedal edema - Neurological Exam Sensorimotor examination: Present: intact, pronator drift Motor Examination: Present: grossly full strength in all extremities, full strength in all major muscle groups Motor examination - left side: 5: deltoids, biceps, triceps, wrist flexion, wrist extension, hip flexors, fruit farmworker, quadriceps, tibialis Anterior, toe extension (EHL), plantarflexion Sensation intact: Present: intact, light touch Reflex and gait examination: normal gait Mental Status Examination: Present: awake, alert, oriented to person, oriented to place, oriented to time, follows commands appropriately, answers questions appropriately, no agnosia, no aphasia, no aproxia Cranial nerve examination: Present: PERRL, EOMI, visual brennan intact, sensory to face intact, no facial asymmetry is present, no dysarthria, hearing is intact symmetrically, soft palate elevates bilaterally upon phonation, gag reflex intact, flexes SCM and trapezius muscles symmetrically with full power, tongue protrudes midline, no atrophy or facial fasiculations present Cerebellar examination: Present: no dysmetria, performs finger to nose and heel to tariq symmetrically without ataxia, no gait ataxia, no truncal ataxia, no difficulty with rapid alternating movements - VTE Reasons for not Prescribing Prophylaxis: Treatment not Indicated - Low risk for VTE Deep Vein Thrombosis/Pulmonary Embolism Present on Admission: No Results - Laboratory Findings CBC and BMP: 10/23/18 11:44 10/23/18 11:44 Abnormal lab findings: Abnormal lab results Glucose 134 mg/dL (70-105) H 10/23/18 11:44 POC Glucose 117 mg/dL (70-99) H 10/23/18 12:09 Urine Urobilinogen 2.0 mg/dL (Normal) H 10/23/18 13:21 - Diagnostic Findings Additional findings: ITS Impressions Head CTA 10/23/18 11:57 IMPRESSION: 1. No acute intracranial abnormality. 2. Acute on chronic right maxillary sinusitis. 3. Unremarkable CTA of the neck. 4. Unremarkable CTA of the head. D/ / 10/23/2018 14:11:40 Vickie Perez MD / jayme garcia Interpreting Provider: Vickie Perez MD Neck CTA 10/23/18 11:58 IMPRESSION: 1. No acute intracranial abnormality. 2. Acute on chronic right maxillary sinusitis. 3. Unremarkable CTA of the neck. 4. Unremarkable CTA of the head. D/ / 10/23/2018 14:11:40 Vickie Perez MD / patricio Interpreting Provider: Vickie Perez MD Consult Discharge Plan - Plan Referrals: NONE,PCP [Primary Care Provider] - (Patient lives in [place]. and will call her own follow up once she returns home) <Aman Becerra - Last Filed: 10/25/18 07:32> Date of Encounter: 10/25/18 Assessment and Plan (1) Vertigo Current Visit: Yes Status: Acute As above. Further recommendations are pending MRI results. Subjective Interval history: As above, chart reviewed, patient seen and examined independently. Patient was sleeping in bed easily aroused to voice. He had an uneventful night. States that the vertigo is subsiding. MRI interpretation is yet pending. Further recommendations will follow MRI scan interpretation. If the MRI is unremarkable then I would recommend simply have her follow up with her primary care provider regarding sinusitis and treatment of benign positional vertigo. Objective - Constitutional Vitals: Temp Pulse Resp BP Pulse Ox 98.2 F 55 16 122/79 96 10/25/18 07:27 10/25/18 07:27 10/25/18 07:27 10/25/18 07:27 10/25/18 07:27 - Neurological Exam Motor examination - right side: 5/5: deltoids, biceps, triceps, wrist flexion, wrist extension, fruit farmworker, hip flexors, tibialis Anterior, quadriceps, toe extension (EHL), plantarflexion Results - Laboratory Findings CBC and BMP: 12/09/18 11:44 10/23/18 11:44 Abnormal lab findings: Abnormal lab results Glucose 134 mg/dL (70-105) H 10/23/18 11:44 POC Glucose 117 mg/dL (70-99) H 10/23/18 12:09 Urine Urobilinogen 2.0 mg/dL (Normal) H 10/23/18 13:21
--- NOTE | 2018-10-25 08:49 | Internal Med Progress Note ---
Hospitalist Progress Note - Encounter Date of Encounter: 10/25/18 Time of Encounter: 08:46 - Subjective Interval History: Patient is a 40 year old female who has history of migraine obesity was admitted for vertigo. She still have vertigo when she sneezing. MRI did not show acute stroke, CT angio scan shows severe right maxillary sinusitis Patient is allergic to penicillin was started levofloxacin IV if she improves by tomorrow she can go home with oral antibiotics - Exam Vitals: Temp Pulse Resp BP Pulse Ox 98.2 F 55 16 122/79 96 10/25/18 07:27 10/25/18 07:27 10/25/18 07:27 10/25/18 07:27 10/25/18 07:27 Exam: CONSTITUTIONAL: patient appears as an age appropriate female in no acute distress. EYES Clear sclerae, bilateral pupils are equal, reactive to light. EMOI. RESPIRATORY: No accessory muscle use, bilateral clear to auscultation, no wheezing, no crackles/rales. CARDIOVASCULAR: Regular heart rate, normal S1 and S2, no murmurs GASTROINTESTINAL: bowel sounds present, soft, no tenderness. MUSCULOSKELETAL: Joints in normal range of motion, no clubbing, no edema, no cyanosis. Bilateral peripheral pulses 2+. NEUROLOGIC: CN II to XII are grossly intact, no focal neurological deficit. DVT Prophylaxis: Lovenox - Summary of Assessment and Plan Summary of Assessment and Plan: The patient is a 48-year-old woman who has hx of migraine. She takes phentermine for treatment of obesity. It was 3 days ago, when she visited [place] for her work-related training. She suddenly developed a feeling of being flushed; with some sweating and tingling in the right arm. It was associated with a feeling of surroundings moving around her. It was also associated with some difficulty in balancing her gait. She waited for some time with her field sales trainer, before she was moved to the office. Then, she was evaluated in an emergency department. They did not find any particular abnormalities (this is what she told me). They gave her meclizine. After a short stay, she left the emergency room basically without any symptoms. patien was admitted for vertigo, Brain MRI is normal 1. No acute intracranial abnormality. 2. Acute on chronic right maxillary sinusitis. 3. Unremarkable CTA of the neck. 4. Unremarkable CTA of the head. (1) Vertigo, likley peripheral, Neurology is on board Current Visit: Yes Status: Acute CTA head revealed acute on chronic right maxillary sinusitis with no acute intracranial abnormality. CTA neck was unremarkable. MRI brain is normal Continue Meclizine. (2) Migraine headache Current Visit: Yes Status: Chronic continue home dose Topamax Qualifiers: Migraine type: unspecified Status migrainosus presence: without status migrainosus Intractability: not intractable Qualified Code(s): G43.909 - Migraine, unspecified, not intractable, without status migrainosus (3) acute on chronic Right maxillary sinusitis, she is allergic to PCN, will start levaquin (4) Morbid Obesity with BMI 40.4 Current Visit: Yes Status: Chronic Phentermine held. 5. 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 D/ / Corey Moore MD / Corey Moore MD Interpreting Provider: Corey Moore MD - VTE Reasons for not Prescribing Prophylaxis: Treatment not Indicated - Low risk for VTE Deep Vein Thrombosis/Pulmonary Embolism Present on Admission: No Consult Discharge Plan - Plan Referrals: NONE,PCP [Primary Care Provider] - (Patient lives in [place]. and will call her own follow up once she returns home)
[2018-10-25] MEDS ORDERED: Levofloxacin 750 MG/150 ML 750 MG/150 ML BAG IVPB SCH (09:00)
[2018-10-25] MEDS: *HR* Enoxaparin 40 MG/0.4 ML SYRINGE SQ SCH (09:24)
[2018-10-25] MEDS: Topiramate 25 MG TABLET PO SCH (09:24)
[2018-10-25] MEDS: Loratadine 10 MG TABLET PO SCH (09:25)
[2018-10-25] MEDS: Fluticasone Propionate Nasal 50 MCG/SPRAY BOTTLE NS SCH (09:25)
--- NOTE | 2018-10-25 17:05 | Electrocardiograph Report ---
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
[2018-10-26] MEDS: *HR* Enoxaparin 40 MG/0.4 ML SYRINGE SQ SCH (06:41)
[2018-10-26] MEDS: Loratadine 10 MG TABLET PO SCH (07:28)
[2018-10-26] MEDS: Fluticasone Propionate Nasal 50 MCG/SPRAY BOTTLE NS SCH (07:30)
[2018-10-26] MEDS: Topiramate 25 MG TABLET PO SCH (07:31)
[2018-10-26] MEDS ORDERED: levoFLOXacin 750 MG TABLET PO SCH (09:00)
--- NOTE | 2018-10-26 10:44 | Discharge Summary ---
<Hiwot Christiansen - Last Filed: 10/26/18 12:41> Date of Encounter: 10/26/18 - Discharge Diagnosis (1) Vertigo Status: Acute (2) Migraine headache Status: Chronic Qualifiers: Migraine type: unspecified Status migrainosus presence: without status migrainosus Intractability: not intractable Qualified Code(s): G43.909 - Migraine, unspecified, not intractable, without status migrainosus (3) Medication side effect Status: Acute (4) Obesity (BMI 35.0-39.9 without comorbidity) Status: Chronic Hospital course: Ms. Watts is a 48 year old female - Time Spent with Patient Total time spent providing and/or coordinating discharge services: Less than 30 minutes (25 in) - Discharge Medications Prescriptions: RX: levoFLOXacin [Levaquin] 750 mg PO DAILY 5 Days #5 tablet RX: Meclizine [Antivert] 25 mg PO TID 7 Days #42 tablet Home Medications: RX: Ergocalciferol (VITAMIN D2) [Vitamin D2] 50,000 unit PO TH 10/23/18 [History] RX: Ketorolac [Toradol] 10 mg PO DAILY PRN 10/23/18 [History] RX: Topiramate [Topamax] 25 mg PO DAILY 10/23/18 [History] RX: Meclizine [Antivert] 25 mg PO TID 7 Days #42 tablet 10/26/18 [Rx] RX: levoFLOXacin [Levaquin] 750 mg PO DAILY 5 Days #5 tablet 10/26/18 [Rx] Allergies/Adverse Reactions: Allergy/AdvReac Type Severity Reaction Status Date / Time tree nut Allergy Unknown Difficulty Verified 10/25/18 18:09 Breathing Penicillins Allergy See Verified 10/23/18 11:22 Comments Date of admission: 10/23/18 15:38 Primary care physician: PCP NONE Consults: 10/24/18 10:21 Consult to Neurology [CONS] Routine Consulting Provider: [facility] Reason for Consult: VERTIGO/DIFFICULTY WALKING.. Time Notified: 10:15 Call Completed: Yes - Constitutional Vitals: Temp Pulse Resp BP Pulse Ox 97.5 F L 70 16 123/83 95 10/26/18 11:22 10/26/18 11:22 10/26/18 11:22 10/26/18 11:22 10/26/18 11:22 - Patient Status Disposition: Home, Self-Care Condition: Good - Discharge Instructions Instructions: Meclizine (By mouth), Levofloxacin (By mouth), Benign Paroxysmal Positional Vertigo (DC) Follow Up With: Hermes Gonsalves DO [Resident] - 10/28/18 9:00 am (Please follow up as schedule...Please arrive 15 minutes and bring insurance card and photo ID and list of your medication. Address: [address] [place] [address] [address] Phone number [phone]. Called 24 hours if not able to make the appt. ) Additional Instructions: Please begin taking Meclizine 25 mg up to three times per day Keep follow up appt with residency clinic for return to driving clearance on Wednesday When back to [place] please make appt with your PCP and get referral to ENT Stop taking weight loss medication until you are seen by your PCP - Attending Attestation I examined this patient and my medical decision-making was reviewed with the Resident Physician Dr Vines. I agree with the documented findings, disposition and treatment plan as described except to the extent set forth below. Ms aWtts was admitted with vertigo and ruled out for stroke this admission. Neurology followed and diagnosed her with BPPV. She was also found to have acute on chronic right maxillary sinusitis. She was started on abx and meclizine with improvement in sxs prior to discharge. 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 She is being discharged back to her hotel, will see the resident clinic at the end of the week for follow up and clearance to drive (will be driving a truck home to [place]) as she does have some dizziness still with turning of her head, though greatly mproved. instructed not to drive until seen in follow up. She will see her [place] PCP once home and obtain referral for ENT from that PCP. awake, pleasant, no complaints. mild dizziness with turning head side to side, none with walking or sitting up. no n/v. mild chairez overnight with sinus pain. no changes in vision, hearing. she is happy to dc and all dc questions answered. gen- alert, awake,appears stated age eyes- pupils equal round , eom intact, no nystagmus cv- reg rate and rhythm, normal s1,s2, no murmurs appreciated lungs- ctabl, no wheezing, rhonchi or crackles neuro- AAOx3, CN grossly intact, no focal deficits Vertigo 2/2 BPPV - CT head, CTA head/neck, MRI reviewed and neg, cont meclizine, treat sinus infection, PCP follow up in 2 days at local resident clinic to re eval and clear for driving, stop phentermine as may be contributing-see pcp Right maxillary acute on chronic sinusitis- given pcn allergy is on levquin, cont oral abx course, will need ENT referral once back to [place] and will see her pcp for this Migraine Hx- cont home topamax further diagnoses and plan as documented by resident <Ludmila Vines - Last Filed: 10/26/18 17:26> - NOTES TO OUTPATIENT PROVIDER Notes to Outpatient Provider: Follow up at residency clinic for re-evaluation 10/28 and to get clearance to return home to [place]. Follow up with your PCP in [place] within the next week. Follow up ENT when returned to [place] Date of Encounter: 10/26/18 Time of Encounter: 11:50 - Discharge Diagnosis (1) Vertigo Priority: Primary Status: Acute (2) Migraine headache Priority: Secondary Status: Chronic Qualifiers: Migraine type: unspecified Status migrainosus presence: without status migrainosus Intractability: not intractable Qualified Code(s): G43.909 - Migraine, unspecified, not intractable, without status migrainosus (3) Right maxillary sinusitis, chronic Priority: Secondary Status: Chronic Hospital course: Ms. Watts is a 48 year old female who presented to the emergency department on 10/23/2018 with 4 day history of nausea and dizziness. She has had recent similar episodes and was evaluated with a negative CT in the past. On arrival to the emergency department patient was afebrile, normotensive, with a heart rate of 71. She had a CTA of the head and neck as well as chest x-ray performed. These were all unremarkable. CBC, BMP, troponin are all within normal limits. Upon admission, patient remained asymptomatic, no further nausea or dizziness. She had no facial droop, slurring of speech, unilateral weakness or loss of sensation. She was started on meclizine with significant relief. She was seen and evaluated by neurology, with negative MRI, and was given a diagnosis of BPPV. On CT of the head it also showed right acute maxillary sinusitis. Patient was started on Levaquin. While in the hospital, patient remained stable, asymptomatic, with vital signs within normal limits. At time of discharge, patient was advised not to drive. 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 Outpatient follow-up was arranged for 10/28/2018 at a local primary care office, as patient will need to be cleared prior to returning to work. Once cleared, patient may return to work. She states that she will make a primary care follow-up with her regular physician when she returns to [place]. She states that she currently has an appointment scheduled for next . She states at that point in time she will seek referral for ENT follow-up regarding the BPPV diagnosis. Patient is in agreement and understanding of disposition. Patient understands return precautions and understands that she may not drive under any circumstance until she has clearance by physician. Patient was given a work note at time of discharge. Chronic conditions were stable during her admission. She is to resume Topamax for chronic migraines. It was discussed that she is not to take any weight loss supplements, as she had been taking phentermine, until she is seen by her [place] primary care pro vider. Patient will be discharged on meclizine as well as Levaquin 750 for the next 5 days to complete a total 7 day course. Discharge discussed with: patient - Time Spent with Patient Total time spent providing and/or coordinating discharge services: Less than 30 minutes Date of admission: 10/23/18 15:38 Primary care physician: PCP NONE Consults: 10/24/18 10:21 Consult to Neurology [CONS] Routine Consulting Provider: [facility] Reason for Consult: VERTIGO/DIFFICULTY WALKING.. Time Notified: 10:15 Call Completed: Yes Discharging clinician: Ludmila Vines Anticipated date of discharge: 10/26/18 - Constitutional Vitals: Temp Pulse Resp BP Pulse Ox 97.8 F 63 16 123/82 97 10/26/18 07:40 10/26/18 07:40 10/26/18 07:40 10/26/18 07:40 10/26/18 07:40 General appearance: Present: A&O X 3, answers questions appropriately Exam: CONSTITUTIONAL: patient appears as an age appropriate female in no acute distress. EYES Clear sclerae, bilateral pupils are equal, reactive to light. EMOI. RESPIRATORY: No accessory muscle use, bilateral clear to auscultation, no wh eezing, no crackles/rales. CARDIOVASCULAR: Regular heart rate, normal S1 and S2, no murmurs GASTROINTESTINAL: bowel sounds present, soft, no tenderness. MUSCULOSKELETAL: Joints in normal range of motion, no clubbing, no edema, no cyanosis. Bilateral peripheral pulses 2+. NEUROLOGIC: CN II to XII are grossly intact, no focal neurological deficit. - Patient Status Overall status at discharge: patient is progressing back to baseline - Diet and Activity Activity: increase activity as tolerated Diet: low fat, low cholesterol, low salt diet - VTE Reasons for not Prescribing Prophylaxis: Treatment not Indicated - Low risk for VTE Deep Vein Thrombosis/Pulmonary Embolism Present on Admission: No
[2018-10-26 11:23] VITALS: BP 123/83
== END 2018-10-26 12:49 | disposition home or self-care (01) ==
LOC: 2ANU 11:17 → EMEROOARM 11:17 → SUATTDRO 15:38 → 2ANU 16:21
PROVIDERS: ADMIT Internal Medicine; ATTEND Internal Medicine